=== PATIENT | male | born 1995 ===

== ENCOUNTER 2018-09-20 08:36 | Emergency (ER) | payer OTHER ==
[2018-09-20] MEDS ORDERED: HYDROmorphone 0.5 mg/0.5 ml ISec IM STA (08:54)
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
[2018-09-20 10:21] VITALS: BP 117/83; PULSE 103; RESP 18; TEMP 98.4
[2018-09-20 10:38] VITALS: O2SAT 96
== END 2018-09-20 10:21 | disposition home or self-care (01) ==
LOC: C.ER 08:36
DX: M54.6 Pain in thoracic spine (principal); V49.9XXA Car occupant (driver) (passenger) injured in unspecified traffic accident, initial encounter
CPT/HCPCS: 72070; 72100; 96372; 99284; J1170; J1885